=== PATIENT | male | born 1950 | race Caucasian/White ===

== ENCOUNTER 2024-02-02 11:34 | Emergency (ER) | payer MEDICARE, OTHER, SELFPAY ==
[2024-02-02 11:42] VITALS: BP 166/87
[2024-02-02 11:58] LABS: % Immature Granulocytes 0.3 % (0-0.5); % Monocytes 8.3 % (1.7-9.3); % Neutrophils 77.4 % (42.2-75.2); Absolute Monocytes 0.6 10^3/uL (0.1-0.6); Absolute Neutrophils 5.6 10^3/uL (1.4-6.5); Hematocrit 44.3 % (39.0-52.0); Mean Corp Hgb Conc. 33.9 g/dL (33.0-37.0); Mean Corpuscular Hgb 31.3 pg (27.0-31.0); Mean Corpuscular Volume 92.5 fL (80.0-94.0); Mean Platelet Volume 9.5 fL (7.4-10.4); Nucleated Red Blood Cells % 0 % (-); Platelet Count 286 10^3/uL (130-400); Red Blood Cell Count 4.79 10^6/uL (4.70-6.10); Red Cell Dist. Width 15.1 % (11.5-14.5); White Blood Cell Count 7.2 10^3/uL (4.8-10.8)
[2024-02-02 12:04] LABS: ALT (SGPT) 14 U/L (0-50); AST (SGOT) 20 U/L (17-59); Albumin 4.3 g/dl (3.5-5.0); Alkaline Phosphatase 76 U/L (38-126); Blood Urea Nitrogen 16 mg/dl (9-20); Calcium 9.3 mg/dl (8.4-10.2); Carbon Dioxide 24 mmol/L (22-30); Chloride 105 mmol/L (98-107); Glucose 90 mg/dl (70-99); Lipase 93 U/L (23-300); Potassium 4.1 mmol/L (3.5-5.1); Sodium 138 mmol/L (135-145); Total Bilirubin 1.4 mg/dl (0.2-1.3); Total Protein 6.8 g/dl (6.3-8.2); eGFR > 60.00
--- NOTE | 2024-02-02 13:53 | ED.GENMED ---
History of Present Illness
General
Chief Complaint: Bowel Problem
Source: patient
Exam Limitations: none
Time Seen by Provider: 02/02/24 13:34
Nursing documentation reviewed up to this point in time: agreed with
History of Present Illness
History of Present Illness:
74-year-old male w hx prostate CA treated 5 yrs ago and normal PSAs since, presents stating no BM for 2 weeks, since getting a Chest CT with IV contrast. Saw new PCP Dr. Vela today and he sent him here for eval.
Pt started with small amounts liquid and soft stool yesterday. Denies feeling bloated but still feels pressure and need to move bowels. Never had this problem before.
Treated for cough with ATBX 3 weeks ago, had f/u CXR, still with 'hazy' area so had lung CT. Has PET scan and f/u appointment with his pigment pumper
Past History
Past History
ED Past Medical History: Asthma and Cancer (prostate tx 5 yrs ago)
ED Past Surgical History: Tonsilectomy
Social History
Tobacco: Non-smoker
Personal:
Living: with family
Employment: Retired
Review of Systems
Review of Systems
Allergies reviewed?: Yes
All Other Systems: ROS reviewed and negative except as documented in HPI and ROS
Constitutional: Denies fever
Respiratory: Denies trouble breathing
Cardiac: Denies chest pain
ABD/GI: Reports constipated; Denies abdominal pain, nausea or vomiting
: Reports difficulty voiding (small amounts, difficult to start stream, only since he's been constipated)
Musculoskeletal: Reports no symptoms
Skin: Reports no symptoms
Neurological: Reports no symptoms
Phy Exam
Physical Exam
Physical Exam:
GENERAL: No acute distress. A&Ox3.
CONSTITUTIONAL: Afebrile.
RESPIRATORY: Regular respirations, nonlabored, lungs clear.
CARDIOVASCULAR: Regular rate and rhythm, no murmurs, no rubs.
GI: Soft, mildly rotund, nontender, normal BS
Rectal: soft light brown stool
MUSCULOSKELETAL: Moves with ease. Well perfused.
SKIN: Warm, dry, pink
PSYCH: Normal mood and affect. Well kept, interactive and appropriate
NEUROLOGIC: Awake, alert and oriented. No focal neurological deficits
Course
Orders/Labs/Results
Orders:
Orders
02/02/24 11:48
CMP [Comprehensive Metabolic Panel] Urgent
Complete Blood Count/With Diff Urgent
Lipase Urgent
02/02/24 14:02
Enema- Treatment ONCE
Type: Soap Suds
Abnormal Lab Results
02/02/24
11:48
MCH 31.3 H pg
(27.0-31.0)
RDW 15.1 H %
(11.5-14.5)
Absolute Lymphs (auto) 1.0 L 10^3/uL
(1.2-3.4)
Neutrophils % 77.4 H %
(42.2-75.2)
Lymphocytes % 14.0 L %
(20.5-51.1)
Total Bilirubin 1.4 H mg/dl
(0.2-1.3)
02/02/24 11:48
02/02/24 11:48
Vital Signs
Initial and Last Documented VS:
Initial Vital Signs
Temp Pulse Resp BP Pulse Ox
97.8 F 75 16 166/87 97
02/02/24 11:42 02/02/24 11:42 02/02/24 11:42 02/02/24 11:42 02/02/24 11:42
Last Documented Vital Signs
Temp Pulse Resp BP Pulse Ox
98.5 F 86 16 126/71 99
02/02/24 14:33 02/02/24 14:33 02/02/24 14:33 02/02/24 14:33 02/02/24 14:33
MDM/Problems Addressed
Differential Diagnosis Includes:
constipation , bowel obstruction
MDM/Problems Addressed:
74-year-old male w hx prostate CA treated 5 yrs ago and normal PSAs since, presents stating no BM for 2 weeks, since getting a Chest CT with IV contrast. Saw new PCP Dr. Vela today and he sent him here for eval.
Pt started with small amounts liquid and soft stool yesterday. Denies feeling bloated but still feels pressure and need to move bowels. Never had this problem before.
Treated for cough with ATBX 3 weeks ago, had f/u CXR, still with 'hazy' area so had lung CT. Has PET scan and f/u appointment with his pigment pumper
After soapsuds enema patient had a very large bowel movement and feels much better. Stable for discharge.
Chronic conditions affecting care: Cancer (prostate)
*Critical Care Note
Total Time (30-74mins, 75-104mins- exclusive of procedures): Not Applicable
ED Attending Note
-
Portions of this chart may have been created with voice recognition software.� Occasional wrong word or��sound alike� substitutions may have occurred due to the inherent limitations of voice recognition software.
Discharge Plan
Departure
Patient Disposition: Home (Routine Discharge)
Date of Disposition: 02/02/24
Time of Disposition: 15:31
Patient with high blood pressure during this ER visit?: No
Condition: Good
Discharge Problem:
Acute constipation
Instructions: Constipation, Adult (DC)
Prescriptions:
No Action
No Current Medications
0
Referrals:
Manuel Vela, DO [Family Provider] - As needed
Interventions
Interventions:
*Risk Screen - Suicide Last Done: 02/02/24 14:33
*General Assessment Last Done: 02/02/24 11:42
*Neglect/Abuse Screening Last Done: 02/02/24 14:33
ED- Fall Risk Assessment Last Done: 02/02/24 14:33
*ED COVID-19 Vaccine History Last Done: 02/02/24 11:42
YK-Wcspou-Ajbvgpoiol Assessment Last Done: 02/02/24 14:33
Discharge Date and Time
Print Language: [id number]
[2024-02-02 14:33] VITALS: BP 126/71; BMI 23.0
[2024-02-02 16:14] VITALS: BP 137/86
== END 2024-02-02 17:07 | disposition home or self-care (01) ==
LOC: EMR 11:34
PROVIDERS: Emergency Medicine; EMERGENCY PHYSICIAN Emergency Medicine; FAMILY PHYSICIAN Family Medicine
DX: K59.09 Other constipation (principal); Z85.46 Personal history of malignant neoplasm of prostate
CPT/HCPCS: 99283; 80053; 83690; 85025

== ENCOUNTER → 2024-09-04 12:40 | Outpatient (REF) | payer MEDICARE, OTHER, SELFPAY ==
[2024-09-04 13:45] LABS: % Basophils 0.2 % (0-2); % Immature Granulocytes 0.2 % (0-0.5); % Monocytes 9.6 % (1.7-9.3); Absolute Lymphocytes 1.1 10^3/uL (1.2-3.4); Absolute Monocytes 0.6 10^3/uL (0.1-0.6); Absolute Neutrophils 4.7 10^3/uL (1.4-6.5); Hematocrit 48.7 % (39.0-52.0); Hemoglobin 16.1 g/dL (13.0-18.0); Mean Corp Hgb Conc. 33.1 g/dL (33.0-37.0); Mean Corpuscular Hgb 31.9 pg (27.0-31.0); Mean Corpuscular Volume 96.6 fL (80.0-94.0); Mean Platelet Volume 9.7 fL (7.4-10.4); Nucleated Red Blood Cells % 0 % (-); Platelet Count 275 10^3/uL (130-400); Red Blood Cell Count 5.04 10^6/uL (4.70-6.10); Red Cell Dist. Width 13.6 % (11.5-14.5); White Blood Cell Count 6.5 10^3/uL (4.8-10.8)
[2024-09-04 14:19] LABS: ALT (SGPT) 16 U/L (0-50); AST (SGOT) 19 U/L (17-59); Albumin 3.9 g/dl (3.5-5.0); Alkaline Phosphatase 64 U/L (38-126); Blood Urea Nitrogen 20 mg/dl (9-20); Calcium 9.9 mg/dl (8.4-10.2); Carbon Dioxide 30 mmol/L (22-30); Chloride 105 mmol/L (98-107); Glucose 90 mg/dl (70-99); HDL Cholesterol 85 mg/dl; LDL Cholesterol, Calculated 122 mg/dl; Potassium 5.1 mmol/L (3.5-5.1); Sodium 140 mmol/L (135-145); Total Bilirubin 0.7 mg/dl (0.2-1.3); Total Cholesterol 223 mg/dl (50-199); Total Protein 6.6 g/dl (6.3-8.2); Triglyceride 81 mg/dl (10-149); Very Low Density Lipoprotein 16 mg/dl (0-30); eGFR > 60.00
[2024-09-04 14:51] LABS: TSH 3.01 uIU/ml (0.47-4.68)
== END ==
LOC: REG 12:40
PROVIDERS: ATTENDING PHYSICIAN Family Medicine
DX: J43.2 Centrilobular emphysema (principal); Z79.899 Other long term (current) drug therapy
CPT/HCPCS: 36415; 80053; 80061; 84443; 85025

== ENCOUNTER → 2025-03-06 10:43 | Outpatient (REF) | payer MEDICARE, OTHER, SELFPAY ==
[2025-03-06 12:36] LABS: ALT (SGPT) 17 U/L (0-50); AST (SGOT) 18 U/L (17-59); Albumin 4.1 g/dl (3.5-5.0); Alkaline Phosphatase 54 U/L (38-126); Blood Urea Nitrogen 18 mg/dl (9-20); Calcium 9.9 mg/dl (8.4-10.2); Carbon Dioxide 30 mmol/L (22-30); Chloride 108 mmol/L (98-107); Glucose 87 mg/dl (70-99); HDL Cholesterol 79 mg/dl; LDL Cholesterol, Calculated 50 mg/dl; Potassium 4.6 mmol/L (3.5-5.1); Sodium 141 mmol/L (135-145); Total Protein 6.5 g/dl (6.3-8.2); Very Low Density Lipoprotein 9 mg/dl (0-30); eGFR > 60.00
== END ==
LOC: REG 10:43
PROVIDERS: ATTENDING PHYSICIAN Family Medicine
DX: E78.5 Hyperlipidemia, unspecified (principal)
CPT/HCPCS: 36415; 80053; 80061